=== PATIENT | female | born 1980 | race African-American/Black ===

== ENCOUNTER 2019-04-27 18:43 | Emergency (ER) | payer SELFPAY ==
[2019-04-27] MEDS ORDERED: IBUPROFEN 800 MG TABLET PO ONE (19:43)
[2019-04-27] MEDS ORDERED: LIDOCAINE 1% INJ-PF (10 MG/ML) 30 ML SDV INJ ONE (19:43)
[2019-04-27] MEDS ORDERED: DIPH/PERTUSS(ACELL)/TETANUS VAC/PF 0.5 ML SYR (>=10YO) IM ONE (19:43)
--- NOTE | 2019-04-27 19:45 | ER Document Report ---
ED Medical Screen (RME) - General Chief Complaint: Laceration Stated Complaint: FINGER LACERATION Time Seen by Provider: 04/27/19 19:43 Mode of Arrival: Ambulatory Information source: Patient Notes: Patient was cutting chicken and slipped cutting her left second finger around 3 PM today. No active bleeding I have greeted and performed a rapid initial assessment of this patient. A comprehensive ED assessment and evaluation of the patient, analysis of test results and completion of the medical decision making process will be conducted by additional ED providers. TRAVEL OUTSIDE OF THE [place] IN LAST 30 DAYS: No - Related Data Allergies/Adverse Reactions: No Known Allergies Allergy (Verified 04/27/19 18:57) Past Medical History - Social History Frequency of alcohol use: None Drug Abuse: None Renal/ Medical History: Denies: Hx Peritoneal Dialysis - Immunizations Hx Diphtheria, Pertussis, Tetanus Vaccination: Yes Physical Exam - Vital signs Vitals: Temp Pulse Resp BP Pulse Ox 98.3 F 69 18 116/64 100 04/27/19 19:15 04/27/19 19:15 04/27/19 19:15 04/27/19 19:15 04/27/19 19:15 - Skin Skin irregularity: Laceration - 2 cm laceration dorsal aspect of left second finger Course - Vital Signs Vital signs: Temp Pulse Resp BP Pulse Ox 98.3 F 69 18 116/64 100 04/27/19 19:15 04/27/19 19:15 04/27/19 19:15 04/27/19 19:15 04/27/19 19:15
[2019-04-27] MEDS ORDERED: LIDOCAINE 1% INJ-PF (10 MG/ML) 30 ML SDV ONE (22:20)
[2019-04-27] MEDS ORDERED: CEPHALEXIN 500 MG CAPSULE PO ONE (22:39)
[2019-04-27] MEDS ORDERED: HYDROCODONE/ACETAMINOPHEN 5-325 MG (6 TAB/ER DISP) PO PRN (23:04)
[2019-04-27 23:34] VITALS: BP 131/82
--- NOTE | 2019-04-28 15:31 | ER Document Report ---
Entered by EBENEZER JUDGE SCRIBE 04/27/19 2239 Acting as scribe for:JOSE RAFAEL DE LA ROSA MD ED General - General Chief Complaint: Laceration Stated Complaint: FINGER LACERATION Time Seen by Provider: 04/27/19 19:43 Primary Care Provider: [facility] [Provider Group] - Follow up tomorrow (Call the office in the morning to schedule a follow-up appointment this week.) Mode of Arrival: Ambulatory Information source: Patient TRAVEL OUTSIDE OF THE [place] IN LAST 30 DAYS: No - Related Data Allergies/Adverse Reactions: No Known Allergies Allergy (Verified 04/27/19 18:57) Past Medical History - General Information source: Patient - Social History Smoking Status: Never Smoker Frequency of alcohol use: None Drug Abuse: None Family History: Reviewed & Not Pertinent Patient has suicidal ideation: No Patient has homicidal ideation: No Renal/ Medical History: Denies: Hx Peritoneal Dialysis - Immunizations Hx Diphtheria, Pertussis, Tetanus Vaccination: Yes Physical Exam - Vital signs Vitals: Temp Pulse Resp BP Pulse Ox 98.3 F 69 18 116/64 100 04/27/19 19:15 04/27/19 19:15 04/27/19 19:15 04/27/19 19:15 04/27/19 19:15 Interpretation: Normal - General General appearance: Appears well, Alert In distress: None - HEENT Head: Normocephalic, Atraumatic Eyes: Normal Pupils: PERRL - Respiratory Respiratory status: No respiratory distress Breath sounds: Normal - Cardiovascular Rhythm: Regular Heart sounds: Normal auscultation Murmur: No - Abdominal Inspection: Normal - Back Back: Normal - Extremities General upper extremity: Other - There is a 2cm transverse laceration over the dorsal proximal left 2nd proximal phalanx at the MCP joint. The laceration goes down into the joint capsule. Distal sensory is intact. Extension tested after anaesthesia to the skin, but not the joint capsule, shows a slight weakness against resistance compared to the 3rd finger. General lower extremity: Normal inspection - Neurological Neuro grossly intact: Yes - Psychological Associated symptoms: Normal affect, Normal mood - Skin Skin Temperature: Warm Skin Moisture: Dry Skin Color: Normal Course - Re-evaluation Re-evalutation: 04/27/19 23:05 PROCEDURE: The left hand skin was prepped with Shur-Clens. The laceration over the dorsal proximal left index finger was anesthetized with 3 mls 1% lidocaine locally. The wound was irrigated with 30 mL's of normal saline. At this point the extensor mechanism was tested. The patient was able to extend the index finger against resistance, but it did seem slightly weaker than the middle finger. There was some pain deeper related to the laceration into the joint capsule. This joint capsule was not anesthetized for the exam. There was no debridement required. The skin wound was closed with 7 simple 5-0 nylon sutures. The wound was dressed in a sterile fashion and the MCP joint splinted in extension to event the joint capsule laceration from being pulled apart. 04/27/19 23:07 - Vital Signs Vital signs: Temp Pulse Resp BP Pulse Ox 98.3 F 80 17 131/82 H 98 04/27/19 19:15 04/27/19 23:34 04/27/19 23:34 04/27/19 23:34 04/27/19 23:34 Discharge - Discharge Clinical Impression: Finger laceration involving tendon Qualifiers: Encounter type: initial encounter Qualified Code(s): S61.219A - Laceration without foreign body of unspecified finger without damage to nail, initial encounter Condition: Stable Disposition: HOME, SELF-CARE Additional Instructions: Hand Laceration A laceration on the hand can present special problems. It may be difficult to keep the wound dry. Motion of the fingers can disturb the healing edges. Your work may involve exposure to damaging chemicals or water. Keep the wound clean and dry. If you can't keep the cut dry, undisturbed, and free of chemical exposure, please discuss this with the doctor. If any water or chemical gets onto the dressing, remove it, blot the wound dry, then apply a fresh bandage. Dressings should be changed every day. If you feel the stitches pulling as you move the hand, a splint or other form of protection is needed. If any signs of infection occur (swelling, redness, increasing tenderness, red streaks, tender lumps in the armpit, or fever), see the doctor immediately. Elevate your hand is much as possible. Keep the dressings clean and dry. Keep the splint on all the time. Take the cephalexin antibiotic as prescribed. Take pain medication as dispensed tonight if needed. Take ibuprofen or Aleve for the inflammation pain you will experience. Call [facility] for surgery tomorrow morning to schedule a follow-up appointment this week with the orthopedic surgeon. RETURN TO THE EMERGENCY ROOM IF ANY NEW OR WORSENING SYMPTOMS. Prescriptions: Cephalexin Monohydrate [Keflex 500 mg Capsule] 500 mg PO QID #20 capsule Forms: Return to Work Referrals: [facility] ([facility] [Provider Group] - Follow up tomorrow (Call the office in the morning to schedule a follow-up appointment this week.) Scribe Attestation: 04/27/19 23:07 I personally performed the services described in the documentation, reviewed and edited the documentation which was dictated to the scribe in my presence, and it accurately records my words and actions. I personally performed the services described in the documentation, reviewed and edited the documentation which was dictated to the scribe in my presence, and it accurately records my words and actions.
== END 2019-04-27 23:34 | disposition home or self-care (01) ==
LOC: ER 18:43
DX: S61.211A Laceration without foreign body of left index finger without damage to nail, initial encounter (principal); X58.XXXA Exposure to other specified factors, initial encounter; Z23 Encounter for immunization
CPT/HCPCS: 99282; 90471; 90715; 12001; A6266; J3490

== ENCOUNTER 2020-02-28 19:59 | Emergency (ER) | payer OTHER ==
[2020-02-28] MEDS ORDERED: IBUPROFEN 600 MG TABLET PO ONE (23:29)
[2020-02-28] MEDS ORDERED: ACETAMINOPHEN 325 MG TABLET PO ONE (23:29)
--- NOTE | 2020-02-29 00:11 | ER Document Report ---
ED Fall - General Chief Complaint: Fall Stated Complaint: FALL AT WORK Time Seen by Provider: 02/28/20 22:31 Primary Care Provider: SHEFALI LLOYD MD [ACTIVE PROVISIONAL STAFF] - Follow up as needed LISANDRO POLLACK JR, DO [ACTIVE PROVISIONAL STAFF] - Follow up as needed GERARDO MOLINA DO [ACTIVE STAFF] - Follow up as needed Notes: Patient is a 39-year-old female who presents emergency department with a chief complaint of left wrist pain that radiates up to her left elbow and left knee pain. Patient states that she was at work and she slipped and she fell and landed on her knee and left wrist. Patient is right-handed. Patient denies any past medical history. She does not take any medications. She did not take any medication to help with pain. She is able to move her wrist with no difficulty, but states that the pain is still there. TRAVEL OUTSIDE OF THE [place] IN LAST 30 DAYS: No - Related data Allergies/Adverse Reactions: No Known Allergies Allergy (Verified 04/27/19 18:57) Past Medical History - Social History Smoking Status: Never Smoker Family History: Reviewed & Not Pertinent Patient has homicidal ideation: No Renal/ Medical History: Denies: Hx Peritoneal Dialysis Past Surgical History: Reports: Hx Section - Immunizations Hx Diphtheria, Pertussis, Tetanus Vaccination: Yes Review of Systems - Review of Systems Notes: REVIEW OF SYSTEMS: CONSTITUTIONAL : Denies recent illness. Denies recent unintentional weight loss. Denies fever, chills, or sweats. EENT: Denies eye, ear, throat, or mouth pain, discharge, or symptoms. Denies nasal or sinus congestion. CARDIOVASCULAR: Denies chest pain. RESPIRATORY: Denies shortness of breath, cough, congestion, difficulty breathing, or wheezing. GASTROINTESTINAL: Denies nausea, vomiting, and diarrhea. Denies abdominal pain. Denies constipation. GENITOURINARY: Denies difficulty urinating, burning, blood in urine, urgency or frequency. MUSCULOSKELETAL: Denies neck and back pain. See HPI. SKIN: Denies rash, itchiness, or lesions HEMATOLOGIC : Denies easy bruising or bleeding. LYMPHATIC: Denies swollen, painful, enlarged glands. NEUROLOGICAL: Denies no numbness or tingling denies weakness. Denies headache. Denies altered mental status. Denies alteration in speech. PSYCHIATRIC: Denies stress, anxiety, alteration in sleep patterns, or depression. All other systems reviewed and negative. Physical Exam - Vital signs Vitals: Temp 98.8 F 02/28/20 19:59 - Notes Notes: PHYSICAL EXAMINATION: GENERAL: Appears well, healthy, well-nourished, no acute distress. HEAD: Normocephalic, atraumatic. EYES: PERRL, conjunctiva normal, all extraocular movements intact, sclera nonicteric ENT: Moist mucous membranes. NECK: Supple, no noticeable swelling, redness, rash. Normal range of motion. LUNGS: Equal breath sounds bilaterally and clear to auscultation. No wheezes rales or rhonchi. CARDIOVASCULAR: S1-S2, regular rate, regular rhythm. Radial pulses 2+, normal. ABDOMEN: Normoactive bowel sounds. Soft, nontender, no guarding, no rebound tenderness, and no masses palpated. EXTREMITIES: Normal strength and range of motion, no pitting or edema. No cyanosis. Tenderness noted to left medial wrist and left lateral knee. NEUROLOGICAL: Moves all extremities upon command. Strength 5/5 in all extremities. PSYCH: Normal mood, normal affect. SKIN: Warm, dry. No rash, lesions, ulcerations noted. Normal skin turgor. Course - Re-evaluation Re-evalutation: 02/29/20 00:46 X-rays do not show any acute fracture of the left wrist or the left knee, but I asked the patient if she possibly had an old fracture in her patella. She is unsure. For precautions, the patient will be placed in an Taye wrap and given crutches. She will also be placed in a cock-up splint. States that she feels better after receiving ibuprofen and Tylenol. Peripheral pulses are normal and capillary refill is less than 3 seconds in all extremities. Patient will follow-up with orthopedics in regards to this visit. She is in agreement with this plan. Follow-up precautions were given. Verbal discharge instructions were given to the patient. They verbalized understanding. They are stable for discharge. - Vital Signs Vital signs: Temp Pulse Resp BP Pulse Ox 98.1 F 75 16 101/64 97 02/29/20 00:59 02/29/20 00:59 02/29/20 00:59 02/29/20 00:59 02/29/20 00:59 Procedures - Immobilization Left Knee Immobilizer type: Taye wrap, Crutches Performed by: PCT Post-Proc Neuro Vasc Exam: Normal, Unchanged from pre-exam Alignment checked and good: Yes Left Wrist Pre-Proc Neuro Vasc Exam: Normal Immobilizer type: Cock-up Performed by: PCT Post-Proc Neuro Vasc Exam: Normal, Unchanged from pre-exam Alignment checked and good: Yes Discharge - Discharge Clinical Impression: Left wrist pain Left knee pain Qualifiers: Chronicity: acute Qualified Code(s): M25.562 - Pain in left knee Condition: Stable Disposition: HOME, SELF-CARE Additional Instructions: You are seen today in the emergency department for left wrist pain and left knee pain after a fall. Please follow-up with orthopedics if you continue to have pain. Use your crutches. Wrap your knee with Taye wrap. Use the cock-up splint to help stabilize your wrist. Take ibuprofen 600 mg and acetaminophen 1000 mg every 6 hours as needed for your pain. Forms: Return to Work Referrals: GERARDO MOLINA DO [ACTIVE STAFF] - Follow up as needed LISANDRO POLLACK JR, DO [ACTIVE PROVISIONAL STAFF] - Follow up as needed SHEFALI LLOYD MD [ACTIVE PROVISIONAL STAFF] - Follow up as needed
--- NOTE | 2020-02-29 00:29 | RADIOLOGY REPORT (SQ) ---
CLINICAL HISTORY: fall COMPARISON: None. TECHNIQUE: XR FOREARM 2 VIEWS 02/28/2020 11:29 PM CDT FINDINGS: There is no fracture. Joint spaces are preserved. Soft tissues are unremarkable. There is ulnar minus variance. IMPRESSION: No acute osseous findings.
--- NOTE | 2020-02-29 00:29 | RADIOLOGY REPORT (SQ) ---
CLINICAL HISTORY: fall COMPARISON: None. TECHNIQUE: XR WRIST 3 OR MORE VIEWS 02/28/2020 11:29 PM CDT FINDINGS: There is no fracture. Joint spaces are preserved. Soft tissues are unremarkable. There is ulnar minus variance. IMPRESSION: No acute osseous findings.
--- NOTE | 2020-02-29 00:33 | RADIOLOGY REPORT (SQ) ---
EXAM DESCRIPTION: RadLex: XR KNEE 4 OR MORE VIEWS Views: 5 CLINICAL HISTORY: 39 years Female; fall; COMPARISON: None. FINDINGS: Negative for acute fracture, dislocation, or radiopaque foreign body. 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 No joint effusion. IMPRESSION: 1. No acute findings.
[2020-02-29 01:02] VITALS: BP 101/64
== END 2020-02-29 01:15 | disposition home or self-care (01) ==
LOC: ER 19:59
DX: M25.532 Pain in left wrist (principal); M25.562 Pain in left knee; M25.522 Pain in left elbow; W01.0XXA Fall on same level from slipping, tripping and stumbling without subsequent striking against object, initial encounter
CPT/HCPCS: 99283

== ENCOUNTER 2020-09-10 12:13 | Emergency (ER) | payer BC ==
--- NOTE | 2020-09-10 13:01 | ER Document Report ---
ED Medical Screen (RME) - General Chief Complaint: Flu Symptoms Stated Complaint: LOSS OF TASTE AND SMELL, COUGH, WEAKNESS Time Seen by Provider: 09/10/20 12:58 Notes: HPI: 40-year-old female presenting for Covid test. Patient states several p eople at work have tested positive recently. She reports that she has had body aches, mild sore throat mild cough over the last 3 to 4 days. Did have some nausea vomiting several days ago which has resolved. No abdominal pain no dysuria PHYSICAL EXAMINATION: Very mild pharyngeal erythema is noted without exudate. Phonation is normal. I have greeted and performed a rapid initial assessment of this patient. A comprehensive ED assessment and evaluation of the patient, analysis of test results and completion of medical decision making process will be conducted by an additional ED providers. TRAVEL OUTSIDE OF THE [place] IN LAST 30 DAYS: No - Related Data Allergies/Adverse Reactions: No Known Allergies Allergy (Verified 09/10/20 12:50) Past Medical History - Social History Chew tobacco use (# tins/day): No Frequency of alcohol use: None Drug Abuse: None Renal/ Medical History: Denies: Hx Peritoneal Dialysis Past Surgical History: Reports: Hx Section - Immunizations Hx Diphtheria, Pertussis, Tetanus Vaccination: Yes Physical Exam - Vital signs Vitals: Temp Pulse Resp BP Pulse Ox 97.1 F 70 17 129/73 H 99 09/10/20 12:20 09/10/20 12:20 09/10/20 12:20 09/10/20 12:20 09/10/20 12:20 Course - Vital Signs Vital signs: Temp Pulse Resp BP Pulse Ox 97.1 F 70 17 129/73 H 99 09/10/20 12:20 09/10/20 12:20 09/10/20 12:20 09/10/20 12:20 09/10/20 12:20
[2020-09-10 14:06] VITALS: BP 126/71
[2020-09-10 14:10] LABS: A TYPE INFLUENZA AG NEGATIVE (NEGATIVE); B INFLUENZA AG NEGATIVE (NEGATIVE)
[2020-09-10] MEDS ORDERED: ONDANSETRON 4 MG TAB.RAPDIS PO ONE (14:34)
--- NOTE | 2020-09-10 14:35 | ER Document Report ---
HPI - HPI Patient complains to provider of: covid symptoms Time Seen by Provider: 09/10/20 12:58 Onset: Other - 2 weeks Onset/Duration: Better Pain Level: Denies Context: Patient states that 2 weeks ago she had chills, cough and congestion. Patient states that the symptoms have since resolved. Patient does complain of continued fatigue and loss of taste and smell. Patient reports some nausea. Patient states that she feels as though her symptoms have improved although she is concerned that she may have Covid and would like to be tested. Associated Symptoms: Other - Fatigue, loss of taste and smell. denies: Nonproductive cough, Nausea, Vomiting Exacerbated by: Denies Relieved by: Denies Similar symptoms previously: No Recently seen / treated by doctor: No - ROS ROS below otherwise negative: Yes Systems Reviewed and Negative: Yes All other systems reviewed and negative - CONSTITUTIONAL Constitutional: DENIES: Fever - NEURO Neurology: DENIES: Weakness - RESPIRATORY Respiratory: REPORTS: Coughing - better now - GASTROINTESTINAL Gastrointestinal: REPORTS: Nausea - REPRODUCTIVE Reproductive: DENIES: : - MUSCULOSKELETAL Musculoskeletal: DENIES: Extremity pain - DERM Skin Color: Normal Skin Problems: None Past Medical History - General Information source: Patient - Social History Smoking Status: Never Smoker Chew tobacco use (# tins/day): No Frequency of alcohol use: None Drug Abuse: None 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 IN LAST 30 DAYS: No - HEENT HEENT: Atraumatic, Normocephalic, Pharyngeal Tenderness. negative: Pharyngeal Exudate, Pharyngeal Erythema - NECK Neck: Normal Inspection, Supple. negative: Lymphadenopathy-Left, Lymphadenopathy-Right - RESPIRATORY Respiratory: Breath Sounds Normal, No Respiratory Distress - CARDIOVASCULAR Cardiovascular: Regular Rate, Regular Rhythm, No Murmur - GI/ABDOMEN Gastrointestinal: Abdomen Soft - BACK Back: Normal Inspection. negative: CVA Tenderness-Right, CVA Tenderness-Left - MUSCULOSKELETAL/EXTREMETIES Musculoskeletal/Extremeties: MAEW - NEURO Level of Consciousness: Awake, Alert, Appropriate Motor/Sensory: No Motor Deficit - DERM Integumentary: Warm, Dry, No Rash Course - Re-evaluation Re-evalutation: 09/10/20 14:39 Patient with negative influenza test. Patient nontoxic in appearance. The patient was evaluated during the global Covid 19 pandemic, and that diagnosis was suspected/considered upon their initial presentation. Their evaluation, treatment and testing was consistent with current guidelines for patients who present with complaints or symptoms that may be related to Covid 19. Patient pr esents with symptoms worrisome for possible Covid 19. Patient does not have emergency worrying symptoms such as difficulty breathing, shortness of breath, chest pain, pressure, confusion or cyanosis. Patient appears suitable for discharge as they are not of an advanced age, do not have any chronic medical conditions such as diabetes, CAD, immune deficiency, chronic lung disease or chronic kidney disease. Patient's vital signs are stable and patient is nontoxic in appearance. Good return precautions have been discussed with patient, patient verbalized understanding and is agreeable with discharge plan of care at this time. - Vital Signs Vital signs: Temp Pulse Resp BP Pulse Ox 98.4 F 76 18 126/71 H 100 09/10/20 14:05 09/10/20 14:05 09/10/20 14:05 09/10/20 14:05 09/10/20 14:05 - Laboratory Laboratory results interpreted by me: 09/10/20 14:39 Labs- All tests 24 hr 09/10/20 13:35 Influenza A (Rapid) NEGATIVE Influenza B (Rapid) NEGATIVE Discharge - Discharge Clinical Impression: Encounter for screening laboratory testing for COVID-19 virus, Nausea, Malaise and fatigue Condition: Stable Disposition: HOME, SELF-CARE Instructions: COVID-19 Guidance for Persons Under Investigation, Acetaminophen, Antinausea Medication ([facility]), Nausea or Vomiting, Nonspecific ([facility]) Additional Instructions: Return immediately for any new or worsening symptoms Followup with your primary care provider, call tomorrow to make a followup appointment Home quarantine as instructed, Covid test is pending Prescriptions: Ondansetron [Zofran Odt 4 mg Tablet] 1 tab PO Q6H #15 tab.rapdis Forms: Return to Work Referrals: [facility] [Provider Group] - Follow up as needed
== END 2020-09-10 14:59 | disposition home or self-care (01) ==
LOC: ER 12:13
DX: R11.0 Nausea (principal); R53.81 Other malaise; R53.83 Other fatigue; R68.83 Chills (without fever); R05 Cough; R43.8 Other disturbances of smell and taste; Z20.828 Contact with and (suspected) exposure to other viral communicable diseases
CPT/HCPCS: 99283; 87804; U0003; S0119; C9803; 87635